=== PATIENT | male | born 2000 | race Caucasian/White ===

== ENCOUNTER → 2019-12-19 | Outpatient (CLI) | payer BC, OTHER ==
[~2019-12-19] MED LIST: LORCET 5-325 M1 EACH PO
== END ==
LOC: LAB 10:43
PROVIDERS: ATTEND Surgery
DX: Z01.812 Encounter for preprocedural laboratory examination (principal); Z20.828 Contact with and (suspected) exposure to other viral communicable diseases

== ENCOUNTER 2019-12-22 10:07 | Day surgery (SDC) | payer BC, OTHER ==
[~2019-12-22] VITALS: Ht 185.4 cm; Wt 95.3 kg
--- NOTE | ~2019-12-22 | O ---
[facility] [place] [address] [place] [address] OPERATIVE REPORT Name: ISRRAEL CHÁVEZ III Room #: DEP [employer].#: [id number] Admission: 12/22/19 Attend Phys: Johnson Rolon MD Discharge: 12/22/19 Date of : 89 Report #: [id number] THIS REPORT FOR: cc: Juan David Clements,Johnson Sanders MD ~ CC: Johnson Clements DATE OF SERVICE: 12/22/2019 PREOPERATIVE DIAGNOSIS: Pilonidal sinus tract with recurrent drainage. POSTOPERATIVE DIAGNOSIS: Pilonidal sinus tract with recurrent drainage. PROCEDURE PERFORMED: Pilonidal cystectomy, extensive. ANESTHESIA: General. SURGEON: Johnson Rolon MD. COMPLICATIONS: None. ESTIMATED BLOOD LOSS: 50 mL. PROCEDURE NOTE: With the patient under general anesthesia in the prone position, the posterior sacral area was prepped with Betadine and draped in sterile fashion. Timeout was performed. Local anesthetic was used to anesthetize the skin surrounding the sinus tract. The patient had multiple indentations in the right posterior lower midline over the sacral area and it was difficult to tell, which is the main drainage, which one starts at the ingrown hair process. There is a large scar bulbous area cephalad where the external drainage is coming from. This was probed and the probe does go in about 2 inches, but I could not get it go any further and I did not probe and push any harder. Ellipse was drawn around this area and is quite lengthy due to the separation of the external opening in all the indentation area. Probably 5 inches in length. An ellipse of normal skin was obtained on either side. Cautery was used to obtain hemostasis and also for the dissection of the subcutaneous tissue down to the presacral fascia even a little bit above the presacral fascia. The specimen was sent to pathology. Irrigation was performed, hemostasis obtained. The deeper tissue was closed down to the bottom with 2-0 PDS and then the more subcutaneous fat was closed with 3-0 PDS in interrupted fashion. Skin was closed with 4-0 nylon in interrupted fashion. [facility] [address] [place] [address] OPERATIVE REPORT Name: ISRRAEL CHÁVEZ [facility] Room #: DEP [facility]..#: [id number] Admission: 12/22/19 Attend Phys: Johnson Rolon MD Discharge: 12/22/19 Date of : 89 Report #: [id number] Hemostasis was obtained. A 4 x 4 was placed over the incision and Op-Site was used for dressing. The patient tolerated the procedure well. By: [id number] [id number] Johnson Rolon MD /nt
[2019-12-22 10:53] VITALS: BP 132/83
[2019-12-22] MEDS ORDERED: LORCET 5-325 M1 EACH PO (13:58)
[2019-12-22 14:06] VITALS: BP 132/83
--- NOTE | 2019-12-24 11:07 | PATH ---
[facility] [address] [place] [address] PATHOLOGY RPT PROCEDURE Name: CARTER CHÁVEZ CANDIS Room #: DEP [facility] M.R.#: [id number] Admission: 12/22/19 Date of : 89 Discharge: 12/22/19 Report #: [id number] Path Case #: [id number] [facility] Accession Number: [id number] . 01 Material submitted: . sinus, accessory - PILONDIAL CYST SINUS TRACT . 01 Clinical history: . PILONIDAL CYSTECTOMY PILONIDAL SINUS TRACT . 02 Diagnosis: Skin and subcutaneous tissue, "pilonidal cyst sinus tract", excision: - Pilonidal sinus tract/cyst with marked acute and chronic inflammation. - Negative for malignancy. (NATHALIE:gaston; 12/23/2019) MBR 12/24/2019 1050 Local . 02 Electronically signed: . Jonny Kam MD, Pathologist NPI- [id number] . 01 Gross description: . The specimen is received in formalin, labeled "Carter Chávez III, pilonidal cyst sinus tract". Received is no ellipse of skin with attached underlying fibroadipose tissue measuring 11.9 x 3.8 x 3.7 cm in greatest dimensions. The epidermal surface displays a well-circumscribed, raised and pink-farrar lesion measuring 1.1 x 1.1 x 0.5 cm. Sectioning reveals a linear sinus tract measuring 7.8 cm in length by 0.5 cm in diameter filled with a slight amount of hair. The remainder of the specimen displays bright yellow, lobulated cut surfaces. The specimen is submitted representatively in cassettes A1 and A2. (CAA; 12/22/2019) QAC/QAC 12/22/2019 1724 Local . 02 Pathologist provided ICD-10: L05.91, L98.9 . 02 CPT . 902215 Specimen Comment: A courtesy copy of this report has been sent to [phone] Specimen Comment: Report sent to Performed at: [address] [facility] [id number] MD Dejan Martínez MD Phone: [phone] Performed at: [address] [address] PATHOLOGY RPT PROCEDURE Name: CARTER CHÁVEZ III Room #: DEP [facility].Debby#: [id number] Admission: 12/22/19 Date of : 89 Discharge: 12/22/19 Report #: [id number] Path Case #: [id number] [facility] [address], [place], [place] [id number] MD Tierra Penny MD Phone: [phone]
== END 2019-12-22 14:22 | disposition home or self-care (01) ==
LOC: OR → TBA 10:20 → OR 10:42
PROVIDERS: ATTEND Surgery
DX: L05.91 Pilonidal cyst without abscess (principal); L05.92 Pilonidal sinus without abscess; L98.9 Disorder of the skin and subcutaneous tissue, unspecified; I10 Essential (primary) hypertension; Z79.899 Other long term (current) drug therapy; Z88.8 Allergy status to other drugs, medicaments and biological substances; Z98.890 Other specified postprocedural states
CPT/HCPCS: 50010; 50101; 50386; 50403; 56525; 56526; 62110; 62900; 70005